=== PATIENT | female | born 1980 | race Caucasian/White ===

== ENCOUNTER 2018-05-25 09:28 | Inpatient (IN) | payer OTHER ==
[2018-05-25] VITALS (16 sets, daily range): BP systolic 100–120; BP diastolic 50–77; PULSE 64–104; TEMP 97.7–98.6
[~2018-05-25] VITALS: Ht 172.8 cm; Wt 109.5 kg
[~2018-05-25 09:28] MED LIST: BCP TD; PRENATAL1 TAB PO
[2018-05-25 15:01] LABS: BASO % 0.3 % (0.0-2.0); EOS # 0.2 (0.0-0.7); EOS % 3.3 % (0-4.0); GRAN # 4.3 (1.4-6.5); GRAN % 64.3 % (42.2-75.2); HEMOGLOBIN 11.3 g/dl (12.5-16.0); LYMPH # 1.6 (1.2-3.4); LYMPH % 23.8 % (20.0-51.0); MEAN CELL VOLUME 83 fl (80.0-100.0); MEAN CORPUSCULAR HEMOGLOBIN 27 pg (27.0-31.0); MEAN CORPUSCULAR HGB CONC 32 g/dl (33.0-37.0); MEAN PLATELET VOLUME 10.5 fl (7.4-10.4); MONO # 0.5 (0.1-0.6); MONO % 7.4 % (1.7-9.3); PLATELET COUNT 203 K/mm3 (130-400); REDCELL DISTRIBUTION WIDTH-CV 14.7 % (11.5-14.5)
[2018-05-25 15:02] LABS: HEMATOCRIT 34.9 % (37.0-47.0)
[2018-05-26 01:15] VITALS: BP 109/52; PULSE 61; TEMP 98.1
[2018-05-26 08:45] VITALS: BP 107/61; PULSE 72; TEMP 97.6
[2018-05-26] MEDS ORDERED: MOTRIN 800800 MG/TAB PO (10:55)
[2018-05-26] MEDS ORDERED: PERCOCET 325 MG1 TA2 PO (10:55)
[2018-05-26 13:00] VITALS: BP 100/54; PULSE 72; TEMP 97.5
[2018-05-26 16:00] VITALS: BP 109/59; PULSE 71; TEMP 97.5
[2018-05-26 20:45] VITALS: BP 102/57; PULSE 74; TEMP 97.1
[2018-05-27 08:30] VITALS: BP 105/56; PULSE 59; TEMP 97.7
== END 2018-05-27 13:00 | disposition home or self-care (01) | DRG 788 ==
LOC: LDR 09:28 → OB 14:05
PROVIDERS: Obstetrics & Gynecology
PROC: 10D00Z1 Extraction of Products of Conception, Low, Open Approach (ICD-10-PCS; principal; 2018-05-25)
DX: O34.211 Maternal care for low transverse scar from previous cesarean delivery (principal); Z3A.39 39 weeks gestation of pregnancy; Z37.0 Single live birth; Z28.21 Immunization not carried out because of patient refusal; O69.81X0 Labor and delivery complicated by cord around neck, without compression, not applicable or unspecified; O24.420 Gestational diabetes mellitus in childbirth, diet controlled; O99.214 Obesity complicating childbirth
CPT/HCPCS: J0690; J1885; J2370; J2405; J2590; J7120

== ENCOUNTER 2019-01-04 08:25 | Day surgery (SDC) | payer OTHER ==
[2019-01-04] VITALS (7 sets, daily range): BP systolic 100–114; BP diastolic 52–66; PULSE 53–70; TEMP 98.3–98.4
[~2019-01-04] VITALS: Ht 200.7 cm; Wt 96.6 kg
[~2019-01-04 08:25] MED LIST changes: +MOTRIN 800800 MG/TAB PO; +PERCOCET 325 MG1 TA2 PO
[2019-01-04] MEDS ORDERED: ADVIL200 MG PO (09:10)
--- NOTE | 2019-01-04 09:11 | NUR ---
TO RM 7 AT 0833- CALL LIGHT IN REACH
[2019-01-04] MEDS ORDERED: NORCO 325 MG-51 TAB PO (12:19)
--- NOTE | 2019-01-04 13:00 | NUR ---
TO RM 7 PER CART FROM PACU. ALERT ORIENTED X3, TALKING TO STAFF AND MOTHER. C/O PAIN 2/10 AND DENIES NEED FOR PAIN MEDS AT THIS TIME. DRESSING ON INCISION SITES CLEAN DRY INTACT. DENIES NAUSEA. MOTHER AT BEDSIDE. RECEIVED WATER
--- NOTE | 2019-01-04 13:15 | NUR ---
NO CHANGES TAKING SIPS OF WATER AND TOLERATED WELL RECEIVED APPLE SAUCE.
--- NOTE | 2019-01-04 13:30 | NUR ---
SCANT DRAINAGE NOTED UNDER BANDAIDE ON MID ABDOMEN. ATE 1-2 BITES OF APPLE SAUCE DENIES NAUSEA. C/O PAIN 08/26 AT CURRENT TIME.
--- NOTE | 2019-01-04 13:45 | NUR ---
NO CHANGES PATIENT RESTING QUIETLY.
--- NOTE | 2019-01-04 14:40 | NUR ---
AMBULATED TO BATHROOM WITH ASSIST. VOIDED AND TOLERATED WELL RECEIVED VALERIE. PUDDING- ATE 100% AND TOLERATED WELL. DISCONTINUED IV AND INT- PATIENT GETTING DRESSED
--- NOTE | 2019-01-04 15:05 | NUR ---
RECEIVED DISCHARGE INSTRUCTIONS AND VERBALIZED UNDERSTANDING. MOTHER AT BEDSIDE.
--- NOTE | 2019-01-04 15:10 | NUR ---
DISCHARGED PER WC BY NURSING STAFF TO PRIVATE CAR IN CARE OF MOTHER- EDER.
== END 2019-01-04 15:13 | disposition home or self-care (01) ==
LOC: SDCO 08:25
DX: K81.1 Chronic cholecystitis (principal); R73.03 Prediabetes; Z83.3 Family history of diabetes mellitus; Z86.32 Personal history of gestational diabetes; E66.9 Obesity, unspecified; Z68.30 Body mass index [BMI] 30.0-30.9, adult
CPT/HCPCS: J0690; J1885; J2405; J2704; J7120

== ENCOUNTER → 2019-11-15 | Outpatient (CLI) | payer BC ==
[~2019-11-15] MED LIST changes: +ADVIL200 MG PO; +NORCO 325 MG-51 TAB PO
== END ==
LOC: MC.RAD 13:15
DX: N63.0 Unspecified lump in unspecified breast (principal)
CPT/HCPCS: G0279